=== PATIENT | male | born 1960 | race Caucasian/White ===

== ENCOUNTER 2022-03-13 13:21 | Outpatient (CLI) | payer BC | END 2022-03-13 13:22 | disposition home or self-care (01) | LOC: CSHCT 13:21 | PROVIDERS: ATTEND Urology | DX: N20.1 Calculus of ureter (principal); N28.89 Other specified disorders of kidney and ureter; K57.30 Diverticulosis of large intestine without perforation or abscess without bleeding; K40.20 Bilateral inguinal hernia, without obstruction or gangrene, not specified as recurrent | CPT/HCPCS: 74176 ==

== ENCOUNTER 2024-09-30 09:33 | Inpatient (IN) | payer BC, SELFPAY ==
[2024-09-30] MEDS ORDERED: predniSONE 20 MG TAB ONE (09:59)
[2024-09-30] MEDS ORDERED: Ipratropium/Albuterol 3 ML NEB ONE ×3 (10:01→12:45)
[2024-09-30 10:13] LABS: Actual Bicarbonate (HCO3v) 26.9 mEq/L (22-28); Analyzer IN Cardio CS ER; Chloride (VBG) 95 mmol/L (98-106); Hematocrit-VBG 51 % (42.0-52.0); Hemoglobin (Hb) 17.4 g/dL (13.1-17.2); Potassium (VBG) 4.48 mmol/L (3.70-5.30); Puncture Site Other Site; RapidComm Collect By LAB; Sodium 139 mmol/L (133-146); pH (venous) 7.336 (7.32-7.43)
[2024-09-30 10:16] LABS: #Basophils Less than 0.03 10x3/uL (0.0-0.2); #Eosinophils Less than 0.03 10x3/uL (0.0-0.5); #Monocytes 0.36 10x3/uL (0.0-1.1); #Neutrophils 9.37 10x3/uL (1.5-8.4); %Basophils 0.1 % (0.0-2.0); %Lymphocytes 3.6 % (18.0-47.0); %Monocytes 3.6 % (0.0-10.0); %Neutrophils 92.4 % (40.0-75.0); Hematocrit 51.7 % (38.8-50.0); Hemoglobin 16.5 g/dL (13.5-17.5); Mean Corpuscular HGB CONC 31.9 g/dL (32.0-36.0); Mean Corpuscular Hemoglobin 30.7 pg (27.0-33.0); Mean Corpuscular Volume 96.3 fL (81.2-95.1); Mean Platelet Volume 10.1 fL (7.4-10.4); Platelet Count 192 10x3/uL (150-450); RBC Distribution Width 11.9 % (11.5-14.5); Red Blood Cell (RBC) Count 5.37 10x6/uL (4.32-5.72); White Blood Cell (WBC) Count 10.14 10x3/uL (3.5-10.5)
[2024-09-30 10:33] LABS: ALT (SGPT) 24 U/L (Less than 45); AST (SGOT) 17 U/L (11-34); Albumin 4.3 g/dL (3.1-4.5); Alkaline Phosphatase 56 U/L (40-110); Anion Gap 16 mmol/L (10-20); BUN (Urea Nitrogen) 14 mg/dL (8.4-25.7); Bilirubin, Total 0.6 mg/dL (0.3-1.2); Calc. Creatinine Clearance 0 mL/min (70-130); Calcium 9.1 mg/dL (7.8-10.44); Carbon Dioxide 26 mmol/L (23-31); Chloride 100 mmol/L (98-107); Estimated GFR 89; Globulin 2.5 g/dL (2.4-3.5); Glucose 293 mg/dL (80-115); Potassium 5.1 mmol/L (3.5-5.1); Protein, Total 6.8 g/dL (5.8-8.1); Sodium 137 mmol/L (136-145)
[2024-09-30 10:36] LABS: Troponin I Less than 0.010 ng/mL (< 0.028)
[2024-09-30] MEDS ORDERED: Albuterol 2.5 MG (3 mL) NEB NEB PRN (12:50)
[2024-09-30] MEDS ORDERED: Acetaminophen 325 MG TAB PO PRN (12:50)
[2024-09-30] MEDS ORDERED: Ondansetron PF 4 MG/2 ML Vial IVP PRN (12:50)
[2024-09-30] MEDS ORDERED: Senokot S 8.6-50 MG TAB PO PRN (12:50)
[2024-09-30] MEDS ORDERED: Calcium Carbonate 500 MG ChewTAB PO PRN (12:50)
[2024-09-30] MEDS ORDERED: Dextrose 5% in Water 1,000 ML IV PRN (12:53)
[2024-09-30] MEDS ORDERED: Glucagon 1 MG/ML KIT IM PRN (12:53)
[2024-09-30] MEDS ORDERED: Dextrose 50% Abboject 50 ML SYRINGE SLOW IVP PRN (12:53)
[2024-09-30] MEDS ORDERED: Benzonatate 100 MG CAP PO PRN (13:00)
[2024-09-30 13:52] VITALS: BMI 28.8
[2024-09-30] MEDS: Sodium Chloride 0.9% 1,000 ML IV SCH (14:29)
[2024-09-30] MEDS: methylPREDNISolone Sod Succ/PF 125 MG/2 ML VIAL IVP SCH (14:53)
[2024-09-30] MEDS: Insulin Lispro 100 UNIT/ML 10 ML VIAL SC PRN ×2 (17:31→22:31)
[2024-09-30] MEDS: metFORMIN 500 MG TAB PO SCH (17:31)
[2024-09-30] MEDS: Ipratropium/Albuterol 3 ML NEB NEB PRN (19:31)
[2024-09-30] MEDS: Mometasone 200 MCG/Formoterol 5 MCG 60 PUFF INHALER INH SCH (19:33)
[2024-09-30] MEDS ORDERED: Atorvastatin Calcium 40 MG TAB PO SCH (21:00)
[2024-09-30] MEDS ORDERED: Aspirin 325 MG TAB PO SCH (21:00)
[2024-09-30] MEDS: Doxycycline 100 MG CAP PO SCH (22:30)
[2024-09-30] MEDS: Melatonin 3 MG TAB PO PRN (22:30)
[2024-09-30] MEDS: Montelukast Sodium 10 mg Tablet PO SCH (22:30)
[2024-10-01 05:04] LABS: #Basophils Less than 0.03 10x3/uL (0.0-0.2); #Eosinophils Less than 0.03 10x3/uL (0.0-0.5); #Monocytes 0.64 10x3/uL (0.0-1.1); #Neutrophils 7.71 10x3/uL (1.5-8.4); %Basophils 0.2 % (0.0-2.0); %Eosinophils 0.1 % (0.0-6.0); %Lymphocytes 10.1 % (18.0-47.0); %Monocytes 6.9 % (0.0-10.0); %Neutrophils 82.5 % (40.0-75.0); Hematocrit 49.1 % (38.8-50.0); Hemoglobin 15.8 g/dL (13.5-17.5); Mean Corpuscular HGB CONC 32.2 g/dL (32.0-36.0); Mean Corpuscular Hemoglobin 31.8 pg (27.0-33.0); Mean Corpuscular Volume 98.8 fL (81.2-95.1); Mean Platelet Volume 10.1 fL (7.4-10.4); Platelet Count 202 10x3/uL (150-450); RBC Distribution Width 12.2 % (11.5-14.5); Red Blood Cell (RBC) Count 4.97 10x6/uL (4.32-5.72); White Blood Cell (WBC) Count 9.34 10x3/uL (3.5-10.5)
[2024-10-01 05:27] LABS: ALT (SGPT) 21 U/L (Less than 45); AST (SGOT) 18 U/L (11-34); Albumin 4.2 g/dL (3.1-4.5); Alkaline Phosphatase 49 U/L (40-110); Anion Gap 13 mmol/L (10-20); BUN (Urea Nitrogen) 9 mg/dL (8.4-25.7); Bilirubin, Total 0.5 mg/dL (0.3-1.2); Calc. Creatinine Clearance 112 mL/min (70-130); Calcium 9.1 mg/dL (7.8-10.44); Carbon Dioxide 29 mmol/L (23-31); Chloride 105 mmol/L (98-107); Estimated GFR 98; Globulin 2.7 g/dL (2.4-3.5); Glucose 142 mg/dL (80-115); Potassium 4.7 mmol/L (3.5-5.1); Protein, Total 6.9 g/dL (5.8-8.1); Sodium 142 mmol/L (136-145)
[2024-10-01] MEDS: methylPREDNISolone Sod Succ 40 MG VIAL IVP SCH (06:40)
[2024-10-01] MEDS: Mometasone 200 MCG/Formoterol 5 MCG 60 PUFF INHALER INH SCH (07:36)
[2024-10-01] MEDS: Fluticasone Propionate Nasal Spray 16 gm Bottle NASAL SCH (08:46)
[2024-10-01] MEDS: Pantoprazole 40 MG DR.TAB PO SCH (08:47)
[2024-10-01] MEDS: Enoxaparin 40 MG (0.4 mL) SYRINGE SC SCH (08:47)
[2024-10-01] MEDS: Lantus 1000 UNITS/10 ML VIAL SC SCH (08:47)
[2024-10-01] MEDS: Aspirin 81 mg Enteric Coated Tablet PO SCH (08:48)
[2024-10-02 04:30] LABS: #Basophils Less than 0.03 10x3/uL (0.0-0.2); #Eosinophils Less than 0.03 10x3/uL (0.0-0.5); #Neutrophils 5.93 10x3/uL (1.5-8.4); %Lymphocytes 7.4 % (18.0-47.0); %Neutrophils 89.3 % (40.0-75.0); Hematocrit 44.1 % (38.8-50.0); Hemoglobin 14.3 g/dL (13.5-17.5); Mean Corpuscular HGB CONC 32.4 g/dL (32.0-36.0); Mean Corpuscular Hemoglobin 31.6 pg (27.0-33.0); Mean Corpuscular Volume 97.6 fL (81.2-95.1); Platelet Count 185 10x3/uL (150-450); RBC Distribution Width 12.5 % (11.5-14.5); Red Blood Cell (RBC) Count 4.52 10x6/uL (4.32-5.72); White Blood Cell (WBC) Count 6.64 10x3/uL (3.5-10.5)
[2024-10-02 04:46] LABS: Anion Gap 14 mmol/L (10-20); BUN (Urea Nitrogen) 9 mg/dL (8.4-25.7); Calc. Creatinine Clearance 115 mL/min (70-130); Calcium 9.3 mg/dL (7.8-10.44); Carbon Dioxide 29 mmol/L (23-31); Chloride 103 mmol/L (98-107); Estimated GFR 99; Glucose 186 mg/dL (80-115); Magnesium 1.7 mg/dL (1.6-2.6); Potassium 4.9 mmol/L (3.5-5.1); Sodium 141 mmol/L (136-145)
[2024-10-02 12:30] VITALS: BP 137/61; TEMP 98.2
[2024-10-03] MEDS ORDERED: predniSONE 20 MG TAB PO SCH (08:00)
== END 2024-10-02 12:30 | disposition home or self-care (01) | DRG 189 ==
LOC: CSHERS 09:33 → SUATTDRO 09:33 → CSHTELE 13:43
PROVIDERS: ADMIT Internal Medicine; ATTEND Family Medicine
DX: J96.01 Acute respiratory failure with hypoxia (principal); J44.1 Chronic obstructive pulmonary disease with (acute) exacerbation; E78.5 Hyperlipidemia, unspecified; Z66 Do not resuscitate; F17.220 Nicotine dependence, chewing tobacco, uncomplicated; I10 Essential (primary) hypertension; Z90.49 Acquired absence of other specified parts of digestive tract
CPT/HCPCS: 36415; 36416; 71045; 80048; 80053; 82805; 83605; 83735; 83880; 84145; 84484; 85025; 87040; 87070; 87205; 87428; 93005; 94640; 94664; 94760; 94762; J1650; J1815; J2919; J7030; J7512; J7620